=== PATIENT | female | born 1990 | race African-American/Black ===

== ENCOUNTER → 2016-05-19 | Outpatient (CLI) | payer BC, OTHER ==
--- NOTE | 2016-05-19 16:33 | US ---
EXAMINATION TYPE: US OB anatomy transabd DATE OF EXAM: 05/19/2016 4:05 PM COMPARISON: NONE HISTORY: LGA, anatomy scan, pt has no complaints at this time TECHNIQUE: Transabdominal (TA) EXAM MEASUREMENTS: GESTATIONAL AGE / DATING Physician Established: (20 weeks/ 6 days) EDC: 09/30/2016 Dates by LMP: Unknown Dates by First Scan: No prior Dates by Current Scan: (21 weeks/ 3 days) EDC: 09/26/2016 SURVEY IUP: Single PLACENTA: Anterior PREVIA: No previa NIMISHA: 12.4 cm Normal CERVICAL LENGTH (transabdominal: norm > 3.0cm): 3.8 cm BIOMETRY PRESENTATION: Vertex BPD: 5.3 cm 22 weeks / 0 days HC: 19.4 cm 21 weeks / 5 days AC: 15.8 cm 20 weeks / 6 days FL: 3.6 cm 21 weeks / 2 days ESTIMATED WEIGHT IN GRAMS: 404 grams ESTIMATED WEIGHT IN LBS/OZS: 0 lbs. 14 oz. WEIGHT PERCENTAGE BASED ON ESTABLISHED DATE: 62.5 % HC/AC: 1.23 Normal FL/AC: 23 Normal HEART RATE: 151 bpm RHYTHM: Normal ANATOMY SEEN (within normal limits): * Lateral Vent (< 1 cm)= 0.7 cm * Cisterna Magna (< 1.1 cm)= 0.3 cm * Nuchal Fold (< 0.6 cm)= 0.3 cm * Cerebellum (varies with age)= 2.2 cm Choroid Plexus (bilateral) Midline Falx Cavus Septi Pellucidi Four Chamber Heart Outflow tracts: LVOT/RVOT Stomach Situs Nose / Lips Diaphragm Kidneys (bilateral) Bladder Cord Insert Three Vessel Cord Longitudinal Spine Transverse Spine Arms (bilateral) Legs (bilateral) IMPRESSION: Single, viable IUP/ No abnormality seen at this time/ Growth parameters wnl
== END | disposition home or self-care (01) ==
LOC: RADUSWWP 15:39
PROVIDERS: ATTEND Obstetrics & Gynecology
DX: O36.62X0 Maternal care for excessive fetal growth, second trimester, not applicable or unspecified (principal); Z3A.21 21 weeks gestation of pregnancy
CPT/HCPCS: 76811

== ENCOUNTER 2016-07-26 14:59 | Observation (INO) | payer BC, OTHER ==
[2016-07-26 15:56] VITALS: BP 120/70; PULSE 90; RESP 16; TEMP 96.1
[2016-07-26] MEDS ORDERED: BETAMET ACET-BETAMETH SOD PHOS 6 MG/ML VIAL IM SCH (16:00)
[2016-07-26 17:37] LABS: Amorphous Sediment,Urine Rare /hpf; Appearance,Urine Turbid (Clear); Bacteria,Urine Many /hpf; Bilirubin,Urine Negative (Negative); Glucose,Urine (UA) Negative (Negative); Ketones,Urine Negative (Negative); Leukocyte Esterase,Urine Small (Negative); Mucus,Urine Rare /hpf; Nitrite,Urine Negative (Negative); Particle Count 21125; Protein,Urine Trace (Negative); Squamous Epithelial Cell,Urine 1 /hpf (0-4); UA Billing (MACRO vs. MICRO) MICRO; Urobilinogen,Urine <2.0 mg/dL (<2.0)
[2016-07-26] MEDS ORDERED: LACTATED RINGERS 1,000 ML IV SCH ×2 (17:45→18:30)
[2016-07-26] MEDS ORDERED: LACTATED RINGERS 1,000 ML IV ONE (17:45)
[2016-07-26] MEDS ORDERED: CALCIUM GLUCONATE 100 MG/ML 10 ML VIAL IV ONE (18:28)
[2016-07-26] MEDS ORDERED: MAGNESIUM SULFATE-WATER PMX 4 GM in WATER FOR INJECTION 50 50ML.BAG IVPB ONE (18:28)
[2016-07-26] MEDS ORDERED: MAGNESIUM SULFATE-WATER PMX 20 GM in WATER FOR INJECTION 1 500ML.BAG IV SCH (18:30)
[2016-07-26 19:47] VITALS: BMI 27.4
--- NOTE | 2016-07-26 21:15 | P.HPOB ---
History of Present Illness H&P Date: 07/26/16 Chief Complaint: pre term labor Patient is a 25-year-old at 30 weeks 2 days' gestation who ryes complaining of contractions. She ryes to the hospital approximately 3 clock's hand was present to monitor and was noted to have some irregular contractions at that time. There was a mistake in [place] her dates out and therefore nurse checked her without doing a fibronectin. However she was noted to be dilated to 2 cm 50% effaced and -3 station. Over the next hour she made no cervical change and was reexamined. However she began having stronger and more regular contractions during that time. She reports the contractions had actually begun about 3 days ago but now today. Gotten much stronger and much more regular. At approximately 6:00 I did check her myself and she was dilated to 3-3/2 and 70% effaced which is a significant change from previous exams. She had Mark received a dose of steroids as a precaution due to her early dilation. However this time she was provided with a 4 g bolus of magnesium. Sulfate and tension to start a continuous to gram per hour regimen and see if we could quite contractions. Potential transfer due to extreme prematurity. This was all discussed with the patient in detail and all questions were answered for her. She does have a history of delivery last at 36 and 6. She relates that at that time she had been dilated to 5 cm for a number of weeks and had actually been dilated again earlier maybe 31 at 32 weeks. However during the [facility] did deliver babies down at 32 weeks since that change has occurred and she is now significantly under a 35 week gestational goal the goal for her will be to try and transfer her to [place] [id number] she is stable for continued monitoring and toco lysis. Physical exam vital signs are stable and she is afebrile. Heart regular, lungs clear, extremities without pain. heart tones are in the 130s to 140s and reactive. Past medical history otherwise unremarkable Past surgical history.removal of bilateral chest cyst ALLERGIES to Benadryl and Zoloft (Zoloft causes of serotonin syndrome) Family history is significant for hypertension and diabetes. Pertinent labs do include B+ blood type Rh and beta was negative. Rubella is immune. Hepatitis B surface antigen and RPR were both negative. Assessment labor Plan toco lysis with goal to transfer to [facility] once stable Past Medical History Past Medical History: No Reported History Additional Past Medical History / Comment(s): Obstetric history: First was a vaginal delivery in 2007. This is her second and she has had care with me since 7 weeks. B+, abs neg, Rub Imm, RPR Nr, Hep B neg, HIV NR. GBS neg. She is gestational diabetic and on insulin. NSTs have been reactive. History of Any Multi-Drug Resistant Organisms: None Reported Additional Past Surgical History / Comment(s): excisional mass of chest Past Anesthesia/Blood Transfusion Reactions: No Reported Reaction Past Psychological History: Anxiety Smoking Status: Never smoker Past Alcohol Use History: Occasional Past Drug Use History: None Reported - Past Family History Father Family Medical History: No Reported History Medications and Allergies Home Medications Medication Instructions Recorded Confirmed Type Tru-Qxvy-Grhhb Acid 1 each PO DAILY 04/27/14 02/05/16 History [-U Capsule] Allergies Allergy/AdvReac Type Severity Reaction Status Date / Time sertraline HCl [From Zoloft] Allergy Severe Swelling Verified 07/26/16 15:19 diphenhydramine HCl Allergy Anaphylaxis Verified 07/26/16 15:19 [From Benadryl] Exam Osteopathic Statement: *. No significant issues noted on an osteopathic structural exam other than those noted in the History and Physical/Consult. - Vital Signs Vital signs: Vital Signs Temp Pulse Resp BP 07/26/16 15:34 96.1 F L 90 16 120/70 Intake and Output 07/26/16 07/26/16 07/26/16 06:59 14:59 22:59 Intake Total 920 Output Total 800 Balance 120 Intake: IV 900 Magnesium Sulfate-Water 900 Pmx 4 gm In Water For Injection 50 50ml.bag @ 150 mls/hr IVPB ONCE ONE Rx#:[id number] Intake, IV Titration 20 Amount Magnesium Sulfate-Water 20 Pmx 20 gm In Water For Injection 1 500ml.bag @ 2 GM/HR 50 mls/hr IV .Q10H [facility] Rx#:[id number] Output: Urine 800 Other: # Voids 1 Weight 70.307 kg Patient Weight 07/27/16 06:59 Weight 70.307 kg Results Abnormal Lab Results - Last 24 Hours (Table) 07/26/16 Range/Units 17:04 Urine Appearance Turbid H (Clear) Urine Protein Trace H (Negative) Ur Leukocyte Esterase Small H (Negative) Amorphous Sediment Rare H (None) /hpf Urine Bacteria Many H (None) /hpf Urine Mucus Rare H (None) /hpf
--- NOTE | 2016-07-26 21:41 | P.DS ---
Providers Date of admission: 07/26/16 18:36 Expected date of discharge: 07/26/16 Attending physician: Stefan Gallo Primary care physician: Stated None Hospital Course: Patient be transferred to [facility] under the care of Dr. Jose Franco and staff. Risks and benefits were discussed with patient in detail and all questions were answered for her prior to the discharge. At this time contractions are sporadic and she is not feeling much in the way of contractions at all she is significant more comfortable and this may be our best opportunity to try and get a transfer and. 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 Patient Condition at Discharge: Stable Plan - Discharge Summary Discharge Medication List Qhz-Fbju-Xglhz Acid [-U Capsule] 1 each PO DAILY 04/27/14 [ History]
== END 2016-07-26 22:42 | disposition short-term general hospital, planned readmission (82) ==
LOC: FBPOP 14:59 → 4FBP 18:36
PROVIDERS: ADMIT Obstetrics & Gynecology; ATTEND Obstetrics & Gynecology
DX: O60.03 Preterm labor without delivery, third trimester (principal); Z82.49 Family history of ischemic heart disease and other diseases of the circulatory system; Z86.32 Personal history of gestational diabetes; Z88.8 Allergy status to other drugs, medicaments and biological substances; O24.414 Gestational diabetes mellitus in pregnancy, insulin controlled; Z3A.30 30 weeks gestation of pregnancy
CPT/HCPCS: 59025; 99215; 96361; 96365; 96372; 84112; 81001; G0378; J0702; J3475 ×2

== ENCOUNTER → 2016-08-10 | Outpatient (CLI) | payer BC, OTHER ==
[2016-08-10 08:35] LABS: CH 30.9; CHCM 32.6; HCT 33.5 % (34.0-46.0); HDW 3.51; Hypochromasia Slight; MCH 31.4 pg (25.0-35.0); MCV 95.2 fL (80.0-100.0); Mean Platelet Volume 7.4; Poikilocytosis Slight; RBC 3.52 m/uL (3.80-5.40); WBC 4.1 k/uL (3.8-10.6)
[2016-08-11 09:17] LABS: HCG,Quantitative Serum 7029.1 mIU/mL
== END ==
LOC: LABWHC1 07:15
PROVIDERS: ATTEND Obstetrics & Gynecology
DX: Z34.92 Encounter for supervision of normal pregnancy, unspecified, second trimester (principal); Z3A.00 Weeks of gestation of pregnancy not specified
CPT/HCPCS: 36415; 82950; 84702; 85027

== ENCOUNTER → 2016-09-01 | Outpatient (CLI) | payer BC, OTHER ==
--- NOTE | 2016-09-01 10:26 | US ---
EXAMINATION TYPE: US OB anatomy transabd DATE OF EXAM: 09/01/2016 9:42 AM COMPARISON: HISTORY: O36.63X0 LARGE FOR DATES Anatomy per order TECHNIQUE: Transabdominal (TA) EXAM MEASUREMENTS: GESTATIONAL AGE / DATING Physician Established: (36 weeks/4 days) EDC: 09/25/2016 Dates by Current Scan for: (36 weeks/3 days) EDC: 09/26/2016 SURVEY IUP: Single PLACENTA: Anterior PREVIA: No previa NIMISHA: 14.0 cm Normal CERVICAL LENGTH (transabdominal: norm > 3.0cm): 3.1 cm BIOMETRY PRESENTATION: Vertex BPD: 8.9 cm 36 weeks / 1 days HC: 32.2 cm 36 weeks / 3 days AC: 32.4 cm 36 weeks / 3 days FL: 7.1 cm 36 weeks / 3 days ESTIMATED WEIGHT IN GRAMS: 2903 grams ESTIMATED WEIGHT IN LBS/OZS: 6 lbs. 6 oz. WEIGHT PERCENTAGE BASED ON ESTABLISHED DATE: 46 % HC/AC: 1.0 Normal FL/AC: 22% Normal HEART RATE: 143 bpm RHYTHM: Normal ANATOMY SEEN (within normal limits): * Lateral Vent (< 1 cm) cm Choroid Plexus (bilateral) Midline Falx Cavus Septi Pellucidi Four Chamber Heart Stomach Situs Nose / Lips Diaphragm Kidneys (bilateral) Bladder Three Vessel Cord ANATOMY SEEN (does not appear within normal limits): ANATOMY NOT SEEN: Not seen due to late gestational age and position * Cisterna Magna (< 1.1 cm) cm * Nuchal Fold (< 0.6 cm) cm * Cerebellum (varies with age) cm Outflow tracts: LVOT/RVOT Cord Insert Longitudinal Spine Transverse Spine Arms (bilateral) Legs (bilateral) IMPRESSION: Live IUP measuring 36 weeks 3 days
== END | disposition home or self-care (01) ==
LOC: RADUSWWP 09:04
PROVIDERS: ATTEND Obstetrics & Gynecology
DX: O36.63X0 Maternal care for excessive fetal growth, third trimester, not applicable or unspecified (principal); Z3A.36 36 weeks gestation of pregnancy
CPT/HCPCS: 76811

== ENCOUNTER 2016-09-02 14:31 | Outpatient (CLI) | payer BC, OTHER ==
[2016-09-02 15:04] VITALS: BP 114/69; PULSE 93; RESP 20; TEMP 96.3
--- NOTE | 2016-09-03 02:38 | P.MSEPDOC ---
Presenting Problems - Arrival Data Date of Arrival on Unit: 09/02/16 Time of Arrival on Unit: 14:31 Mode of Transport: Ambulatory - Complaint OB-Reason for Admission/Chief Complaint: Possible Onset of Labor Medical History - Information : 3 Para: 2 Term: 2 : 0 Abortions: Spontaneous or Elective: 0 Number of Living Children: 2 - Gestational Age Expected Date of Delivery: 09/25/16 Gestational Age by DONNIE (wks/days): 36 Weeks and 6 Days - History Complications: Prior Review of Systems - Review of Systems Constitutional: No problems Breast: No problems ENT: No problems Cardiovascular: No problems Respiratory: No problems Gastrointestinal: No problems Genitourinary: No problems Musculoskeletal: No problems Neurological: No problems Skin: No problems Comment: cust removed from both breast at age 12 Vital Signs - Temperature Temperature: 96.3 F Temperature Source: Skin - Pulse Brachial Pulse Rate: 93 Pulse Assessment Method: Automatic Cuff - Respirations Respiratory Rate: 20 Oxygen Delivery Method: Room Air O2 Sat by Pulse Oximetry: 97 - Blood Pressure Right Arm Blood Pressure: 114/69 Blood Pressure Mean: 84 Blood Pressure Source: Automatic Cuff Medical Screen Scoring (Pre) - Cervical Exam Dilation: 1-3 cm = 1 Effacement: More than 50% = 2 Membranes: Intact - Uterine Contractions Frequency: > 5 minutes apart = 1, > or = 36 weeks =2 Duration: > 40 seconds = 2 Intensity: N/A - Maternal Vital Signs Maternal Temperature: N/A Maternal Blood Pressure: N/A Signs of Preeclampsia: N/A Maternal Respirations: N/A - Maternal Trauma Maternal Trauma: N/A - Assessment Baseline FHR: 136 Heart Rate - NICHD Category: Category I (Normal) = 0 NST: Reactive - Total Score Total Score (Pre): 8 - Level of Risk Level of Risk: Medium (6-9) Physician Notification (Pre) - Physician Notified Physician Notified Date: 09/02/16 Physician Notified Time: 15:20 Physician/Practitioner Notifed:: dr mathis Spoke With: dr ferris Medical Screen Scoring (Post) - Cervical Exam Dilation: 1-3 cm = 1 Effacement: More than 50% = 2 Membranes: Intact - Uterine Contractions Frequency: > 5 minutes apart = 1 Duration: > 40 seconds = 2 Intensity: N/A - Maternal Vital Signs Maternal Temperature: N/A Maternal Blood Pressure: N/A Signs of Preeclampsia: N/A Maternal Respirations: N/A - Maternal Trauma Maternal Trauma: N/A - Assessment Heart Rate - NICHD Category: Category I (Normal) = 0 NST: Reactive - Total Score Total Score (Post): 6 - Post Treatment Level of Risk Post Treatment Level of Risk: Medium (6-9) Physician Notification (Post) - Physician Notified Physician Notified Date: 09/02/16 Physician Notified Time: 16:40 Physician/Practitioner Notified:: dr ferris Spoke With: dr ferris Disposition - Disposition OB Disposition: Triage, Discharge to home, Written follow up instructions reviewed Discharge Date: 09/02/16 Discharge Time: 17:05 I agree with the RN Medical Screening Exam: Yes Risk & Benefit of care provided described in d/c instruction: Yes Diagnosis: PRIMARY INADEQUATE CONTRACTIONS
== END 2016-09-02 17:05 | disposition home or self-care (01) ==
LOC: FBPOP 14:31
PROVIDERS: ATTEND Obstetrics & Gynecology
DX: O62.0 Primary inadequate contractions (principal); Z3A.36 36 weeks gestation of pregnancy
CPT/HCPCS: 59025; 99213

== ENCOUNTER 2016-09-11 19:14 | Inpatient (IN) | payer BC, OTHER ==
[2016-09-11] MEDS ORDERED: TERBUTALINE 1 MG/ML VIAL SQ PRN (19:48)
[2016-09-11] MEDS ORDERED: OXYTOCIN 10 UNIT/ML 1 ML VIAL IM PRN (19:48)
[2016-09-11] MEDS ORDERED: LIDOCAINE 1% (PF) 10 MG/ML (30 ML SDV) SQ PRN (19:48)
[2016-09-11] MEDS ORDERED: METHYLERGONOVINE 0.2 MG/ML 1 ML AMP IM PRN (19:48)
[2016-09-11] MEDS ORDERED: CARBOPROST TROMETHAMINE 250 MCG/ML 1 ML AMP IM PRN (19:48)
[2016-09-11] MEDS ORDERED: OXYTOCIN 20 UNITS/1000 ML NS 1,000 ML IV SCH (20:00)
[2016-09-11] MEDS: LACTATED RINGERS 1,000 ML IV SCH ×2 (20:05→21:24)
[2016-09-11 20:09] LABS: Basophils % (A) 0 %; CH 30.5; Eosinophils # (A) 0.1 k/uL (0-0.7); Eosinophils % (A) 1 %; HCT 31.9 % (34.0-46.0); HDW 3.59; HGB 10.3 gm/dL (11.4-16.0); Hypochromasia Slight; Luc # (Auto) 0.28; Luc % (Auto) 4; Lymphocytes # (A) 1.5 k/uL (1.0-4.8); Lymphocytes % (A) 19 %; MCH 29.9 pg (25.0-35.0); MCHC 32.2 g/dL (31.0-37.0); MCV 92.8 fL (80.0-100.0); Mean Platelet Volume 8.2; Monocytes # (A) 0.4 k/uL (0-1.0); Monocytes % (A) 5 %; Neutrophils # (A) 5.7 k/uL (1.3-7.7); Neutrophils % (A) 71 %; Poikilocytosis Slight; RBC 3.44 m/uL (3.80-5.40); RDW 14.4 % (11.5-15.5)
[2016-09-11] MEDS ORDERED: fentaNYL (PF) 50 MCG/ML 5 ML AMP ONE (20:30)
[2016-09-11] MEDS ORDERED: SODIUM CHLORIDE 0.9% 100 ML BAG ONE (20:30)
[2016-09-11] MEDS ORDERED: BUPIVACAINE (PF) 0.25% 30 ML VIAL ONE (20:30)
[2016-09-11] MEDS ORDERED: ACETAMINOPHEN TAB 325 MG TAB PO PRN (23:50)
[2016-09-11] MEDS ORDERED: diphenhydrAMINE 50 MG CAP PO PRN (23:50)
[2016-09-11] MEDS ORDERED: diphenhydrAMINE 50 MG/ML 1 ML VIAL IVP PRN ×2 (23:50)
[2016-09-11] MEDS ORDERED: WITCH HAZEL 1 EACH MED..PAD TOPICAL PRN (23:50)
[2016-09-11] MEDS ORDERED: LANOLIN CREAM 5 GM TUBE TOPICAL PRN (23:50)
[2016-09-11] MEDS ORDERED: BENZOCAINE/MENTHOL SPRAY 1 GM/SPRAY AEROSOL TOPICAL PRN (23:50)
[2016-09-11] MEDS ORDERED: HYDROCORTISONE 2.5% RECTAL CREAM 30 GM TUBE RECTAL PRN (23:50)
[2016-09-11] MEDS ORDERED: ZOLPIDEM 5 MG TAB PO PRN (23:50)
[2016-09-11] MEDS ORDERED: diphenhydrAMINE 25 MG CAP PO PRN (23:50)
[2016-09-11] MEDS ORDERED: SIMETHICONE 80 MG CHEWABLE PO PRN (23:50)
--- NOTE | 2016-09-11 23:53 | P.HPOB ---
History of Present Illness H&P Date: 09/11/16 Chief Complaint: Intrauterine at term: Active labor Patient is a 25 year old at 38 weeks gestation arise in active labor dilated to 5 cm making cervical change. Her Precis course has been, K by a labor episode 32 weeks where she was transferred to high risk. She did return and has done relatively well and has had no other significant issues since that time. She thought she might broke her water tonight however an Essure was negative artificial rupture membranes was performed and clear fluid is noted. Pertinent labs did include B+ blood type Rh was negative, rubella immune, hepatitis B surface antigen and RPR were both negative. On physical exam vital signs are stable and afebrile. Heart regular, lungs clear, extremities without pain. Abdomen is soft gravid uterus is noted. heart tones are 130s to 150s have been reactive. She is josie every 2-3 minutes. Assessment intrauterine at term. Plan expect spontaneous vaginal delivery. She plans to utilize epidural for analgesia Past Medical History Past Medical History: No Reported History Additional Past Medical History / Comment(s): Obstetric history: First was a vaginal delivery in 2007. This is her second and she has had care with nm since 7 weeks. B+, abs neg, Rub Imm, RPR Nr, Hep B neg, HIV NR. GBS neg. She is gestational diabetic and on insulin. NSTs have been reactive. History of Any Multi-Drug Resistant Organisms: None Reported Additional Past Surgical History / Comment(s): excisional mass of chest at age 11 Past Anesthesia/Blood Transfusion Reactions: No Reported Reaction Past Psychological History: Anxiety Additional Psychological History / Comment(s): not medicated Smoking Status: Never smoker Past Alcohol Use History: Occasional Past Drug Use History: None Reported - Past Family History Father Family Medical History: No Reported History Medications and Allergies Home Medications Medication Instructions Recorded Confirmed Type Hix-Zucb-Zxmid Acid 1 each PO DAILY 04/27/14 09/11/16 History [-U Capsule] Allergies Allergy/AdvReac Type Severity Reaction Status Date / Time sertraline HCl [From Zoloft] Allergy Severe Swelling Verified 09/02/16 14:54 diphenhydramine HCl Allergy Anaphylaxis Verified 09/02/16 14:54 [From Benadryl] Exam Osteopathic Statement: *. No significant issues noted on an osteopathic structural exam other than those noted in the History and Physical/Consult. - Vital Signs Vital signs: Vital Signs Temp Pulse Resp BP 09/11/16 19:47 96.2 F L 87 16 116/69 Intake and Output 09/11/16 09/11/16 09/12/16 14:59 22:59 06:59 Other: # Voids 1 Weight 70.76 kg Patient Weight 09/12/16 06:59 Weight 70.76 kg Results Result Diagrams: 09/11/16 20:00 Abnormal Lab Results - Last 24 Hours (Table) 09/11/16 Range/Units 20:00 RBC 3.44 L (3.80-5.40) m/uL Hgb 10.3 L (11.4-16.0) gm/dL Hct 31.9 L (34.0-46.0) %
--- NOTE | 2016-09-11 23:54 | P.PROBDLV ---
Vaginal Delivery Note - . Vaginal Delivery Note: Patient progressed complete and pushed with spontaneous vaginal delivery of a viable female over an intact perineum. Falling deliver the head anterior posterior shoulders were easily delivered with gentle downward upper traction followed by the remainder the baby. Baby was delivered from straight OA position. Once baby was fully delivered mouth nares were bulb suctioned and baby was placed on mother's abdomen where the umbilical cord was clamped pulsating 30 seconds prior to clamping and cutting. Once this was accomplished nursery personnel was present to assume care. Placenta was then delivered intact Pitocin was added to the IV. scores were 8 and 9 at one and 5 minutes and the weight was 6 lbs. 12 oz. Both mother and baby currently appear stable following delivery.
[2016-09-12] MEDS: Acetaminophen-Codeine 300-30mg TAB PO PRN ×5 (00:35→19:58)
[2016-09-12] MEDS: IBUPROFEN 600 MG TAB PO PRN ×4 (02:05→23:13)
[2016-09-12] MEDS: LACTATED RINGERS 1,000 ML IV SCH (05:38)
[2016-09-12 07:45] VITALS: RESP 16
--- NOTE | 2016-09-12 08:31 | P.PNOBGVD ---
Subjective - Subjective Principal diagnosis: S/P NVD PPD #1 Interval history: Pt seen and examined. c/o intense cramps about 3 times an hour. taking ibuprofen. Denies N/V, F/C, CP, SOB, calf pain. Patient reports: Reports appetite normal, Reports voiding normally, Reports pain well controlled, Reports ambulating normally Calion: doing well Objective - Latest Vital Signs Latest vital signs: Vital Signs Temp Pulse Resp BP Pulse Ox 09/12/16 07:41 98.7 F 75 16 115/70 98 09/12/16 04:00 98.7 F 84 18 118/75 98 09/12/16 01:46 96.5 F L 77 18 128/78 09/12/16 01:16 96.1 F L 88 18 126/75 100 09/12/16 00:46 96.0 F L 68 16 115/66 09/12/16 00:31 96.0 F L 81 18 122/70 09/12/16 00:16 67 18 123/70 09/12/16 00:01 96.3 F L 68 16 117/66 97 09/11/16 23:46 96.3 F L 83 16 123/70 09/11/16 19:47 96.2 F L 87 16 116/69 Intake and Output 09/11/16 09/12/16 09/12/16 22:59 06:59 14:59 Intake Total 1300 Output Total 300 Balance 1000 Intake: Intake, IV Titration 1300 Amount Lactated Ringers 1,000 ml 1300 @ 125 mls/hr IV .Q8H [facility] Rx#:[id number] Output: Urine 300 Other: Voiding Method Toilet # Voids 1 1 1 # Bowel Movements 0 Weight 70.76 kg - Exam Lungs: bilateral: normal Chest: Normal S1, Normal S2 Extremities: Present: normal Abdomen: Present: normal appearance, soft Uterus: Present: normal, firm - Labs Labs: Abnormal Lab Results - Last 24 Hours (Table) 09/11/16 Range/Units 20:00 RBC 3.44 L (3.80-5.40) m/uL Hgb 10.3 L (11.4-16.0) gm/dL Hct 31.9 L (34.0-46.0) % Assessment and Plan (1) Normal vaginal delivery Narrative/Plan: 1. continue care Current Visit: Yes Status: Acute Code(s): O80 - ENCOUNTER FOR FULL-TERM UNCOMPLICATED DELIVERY SNOMED Code(s): 55343809
[2016-09-12] MEDS: SENNOSIDES-DOCUSATE SODIUM 1 EACH TAB PO SCH ×2 (19:59→20:44)
[2016-09-13] MEDS: Acetaminophen-Codeine 300-30mg TAB PO PRN (01:14)
[2016-09-13] MEDS: IBUPROFEN 600 MG TAB PO PRN (05:43)
[2016-09-13] MEDS: SENNOSIDES-DOCUSATE SODIUM 1 EACH TAB PO SCH (07:40)
[2016-09-13 08:23] VITALS: BP 99/64; PULSE 67; TEMP 98.4
--- NOTE | 2016-09-13 08:37 | P.DS ---
Providers Date of admission: 09/11/16 19:40 Expected date of discharge: 09/13/16 Attending physician: Stefan Gallo Primary care physician: Stated None - Discharge Diagnosis(es) (1) Normal vaginal delivery Current Visit: Yes Status: Acute Hospital Course: Patient presented in active labor. She underwent a normal vaginal delivery. Her course. With a little bit of back pain from where the epidural was placed but that is improving as time goes on. She is taking Motrin for pain control. Denies nausea, vomiting, chest pain, shortness of breath or calf pain. Her lochia is decreasing. She is voiding and ambulating without difficulty. She'll be discharged home day #2 in stable condition to follow-up with me in 6 weeks. Plan - Discharge Summary New Discharge Prescriptions: Ibuprofen [Motrin] 600 mg PO Q6HR PRN #30 tab PRN Reason: Mild Pain Or Fever >= 100.5 Discharge Medication List Vzm-Izit-Pfkno Acid [-U Capsule] 1 tab PO DAILY 04/27/14 [ History] Ibuprofen [Motrin] 600 mg PO Q6HR PRN #30 tab 09/13/16 [Rx] Follow up Appointment(s)/Referral(s): Rae Collins DO [Doctor of Osteopathic Medicine] - 6 Weeks Discharge Disposition: HOME SELF-CARE
== END 2016-09-13 15:25 | disposition home or self-care (01) | DRG 775 ==
LOC: FBPOP 19:14 → 4FBP 19:40
PROVIDERS: ADMIT Obstetrics & Gynecology; ATTEND Obstetrics & Gynecology
PROC: 10E0XZZ Delivery of Products of Conception, External Approach (ICD-10-PCS; principal; 2016-09-11)
PROC: 00HU33Z Insertion of Infusion Device into Spinal Canal, Percutaneous Approach (ICD-10-PCS; 2016-09-11)
PROC: 3E0R3CZ (ICD-10-PCS; 2016-09-11)
DX: O24.424 Gestational diabetes mellitus in childbirth, insulin controlled (principal); O99.344 Other mental disorders complicating childbirth; F41.9 Anxiety disorder, unspecified; Z37.0 Single live birth; Z3A.38 38 weeks gestation of pregnancy; Z79.4 Long term (current) use of insulin
CPT/HCPCS: 59025; 84112; 85025; 88307; 99213

== ENCOUNTER → 2016-11-07 | Outpatient (CLI) | payer BC, OTHER ==
[2016-11-07 16:21] LABS: Basophils % (A) 0 %; CH 29.8; CHCM 33.8; Eosinophils % (A) 1 %; HCT 34.5 % (34.0-46.0); HDW 3.03; HGB 12.1 gm/dL (11.4-16.0); Luc # (Auto) 0.13; Luc % (Auto) 3; Lymphocytes # (A) 1.7 k/uL (1.0-4.8); Lymphocytes % (A) 45 %; MCHC 35.2 g/dL (31.0-37.0); MCV 88.1 fL (80.0-100.0); Mean Platelet Volume 7.1; Monocytes # (A) 0.2 k/uL (0-1.0); Monocytes % (A) 6 %; Neutrophils # (A) 1.7 k/uL (1.3-7.7); Neutrophils % (A) 44 %; RBC 3.91 m/uL (3.80-5.40); RDW 14.5 % (11.5-15.5); WBC 3.8 k/uL (3.8-10.6); WBC (Perox) 3.97
== END | disposition home or self-care (01) ==
LOC: LABPAT 15:39
PROVIDERS: ATTEND Obstetrics & Gynecology
DX: Z01.812 Encounter for preprocedural laboratory examination (principal)
CPT/HCPCS: 85025

== ENCOUNTER 2016-11-15 06:15 | Day surgery (SDC) | payer BC, OTHER ==
[2016-11-14 11:05] VITALS: BMI 23.7
--- NOTE | 2016-11-14 16:38 | P.HPOB ---
History of Present Illness H&P Date: 11/14/16 Chief Complaint: Family Planning 25 year old presents for laparoscopic tubal ligation. Review of Systems All systems: negative Constitutional: Denies chills, Denies fever Eyes: denies blurred vision, denies pain Ears, nose, mouth and throat: Denies headache, Denies sore throat Cardiovascular: Denies chest pain, Denies shortness of breath Respiratory: Denies cough Gastrointestinal: Denies abdominal pain, Denies diarrhea, Denies nausea, Denies vomiting Genitourinary: Denies dysuria, Denies hematuria Musculoskeletal: Denies myalgias Integumentary: Denies pruritus, Denies rash Neurological: Denies numbness, Denies weakness Psychiatric: Denies anxiety, Denies depression Endocrine: Denies fatigue, Denies weight change Past Medical History Past Medical History: No Reported History History of Any Multi-Drug Resistant Organisms: None Reported Additional Past Surgical History / Comment(s): excisional mass of chest at age 11 Past Anesthesia/Blood Transfusion Reactions: No Reported Reaction Past Psychological History: No Psychological Hx Reported Smoking Status: Never smoker Past Alcohol Use History: None Reported Past Drug Use History: None Reported - Past Family History Father Family Medical History: No Reported History Medications and Allergies Home Medications Medication Instructions Recorded Confirmed Type No Known Home Medications [No 11/14/16 11/14/16 History Known Home Medications] Allergies Allergy/AdvReac Type Severity Reaction Status Date / Time sertraline HCl [From Zoloft] Allergy Severe Swelling Verified 11/14/16 10:56 diphenhydramine HCl Allergy Anaphylaxis Verified 11/14/16 10:56 [From Benadryl] Exam Osteopathic Statement: *. No significant issues noted on an osteopathic structural exam other than those noted in the History and Physical/Consult. - Vital Signs Vital signs: Intake and Output 11/14/16 11/14/16 11/14/16 06:59 14:59 22:59 Other: Weight 61.689 kg Patient Weight 11/15/16 06:59 Weight 61.689 kg Heart: RRR Lungs: CTAB Abdomen: soft, nontender Extremeties: neg kaitlynn's Assessment and Plan (1) Family planning Status: Acute Plan: 1. laparoscopic tubal ligation
[~2016-11-15 06:15] MED LIST: DEXAMETHASONE SOD PHOSPHATE 10 MG/ML 1 ML VIAL IV ONE; HYDROmorphone 1 MG/ML 1 ML SYRINGE IVP PRN; MIDAZOLAM 2 MG/2 ML VIAL IV PRN; ONDANSETRON 4 MG/2 ML VIAL IVP ONE; Pre Op ABX Message 1 EACH MISC MISCELLANE ONE
[2016-11-15] MEDS: LACTATED RINGERS 1,000 ML IV SCH ×2 (06:41→07:24)
[2016-11-15] MEDS ORDERED: LIDOCAINE 1% 20 ML VIAL (10MG/ML) FOR IV START INTRADERMA ONE (06:42)
[2016-11-15] MEDS ORDERED: NEOSTIGMINE 1 MG/ML 10 ML VIAL ONE (07:25)
[2016-11-15] MEDS ORDERED: MIDAZOLAM 2 MG/2 ML VIAL ONE (07:25)
[2016-11-15] MEDS ORDERED: ROCURONIUM BROMIDE 10 MG/ML 10 ML VIAL IV ONE (07:25)
[2016-11-15] MEDS ORDERED: PROPOFOL 10 MG/ML 20 ML VIAL IV ONE (07:25)
[2016-11-15] MEDS ORDERED: KETOROLAC 30 MG/ML 1 ML VIAL ONE (07:25)
[2016-11-15] MEDS ORDERED: LIDOCAINE 1% INJ 10MG/ML (20 ML MDV) ONE (07:25)
[2016-11-15] MEDS ORDERED: SUCCINYLCHOLINE CHLORIDE 100 MG/5 ML SYR IV ONE (07:25)
[2016-11-15] MEDS ORDERED: GLYCOPYRROLATE 0.2 MG/ML 2 ML VIAL ONE (07:25)
[2016-11-15] MEDS ORDERED: fentaNYL (PF) 50 MCG/ML 2 ML AMP ONE (07:25)
[2016-11-15] MEDS ORDERED: BUPIVACAINE (PF) 0.25% 30 ML VIAL SQ ONE ×2 (07:58)
--- NOTE | 2016-11-15 08:10 | P.OP ---
Date of Procedure: 11/15/16 Preoperative Diagnosis: 1. Family Planning Postoperative Diagnosis: 1. FAmily Planning Procedure(s) Performed: Laparoscopic tubal ligation Implants: Anesthesia: JOSEA Surgeon: Rae Collins Estimated Blood Loss (ml): 3 IV fluids (ml): 300 Urine output (ml): 20 Pathology: none sent Condition: stable Disposition: PACU Indications for Procedure: Operative Findings: Normal uterus tubes and ovaries Description of Procedure: Patient was taken to the operating room where general anesthesia was obtained without difficulty. She was prepped and draped in normal sterile fashion in the dorsal lithotomy position, legs placed in the Dmitri stirrups. Bladder drained of all urine. Mineral speculum placed in the vagina and the anterior lip the cervix was grasped with single-tooth tenaculum. The uterus is sounded to 10 cm and the kroner manipulator was placed. Attention was then turned to the abdomen and gloves were changed. A 10 mm infraumbilical incision was made the scalpel and 10 mm optical trocar was placed under direct visualization. A 5 mm suprapubic Incision was made and a 5 mm optical trocar was placed under direct visualization. Survey of the pelvis revealed normal uterus tubes and ovaries. The left fallopian tube was grasped with a Kleppinger and fulgurated 2 -3 cm on this side in the ampullar portion. The right fallopian tube was grasped with a Kleppinger and fulgurated 2-3 cm in the ampullar portion. All instruments were then removed from the abdomen and vagina. The 10 mm infraumbilical incision was closed with 0 Vicryl and the fascial layer and then 4-0 Vicryl in a subcuticular fashion. The 5 mm incision was closed with 4-0 Vicryl in a subcuticular fashion. Patient tolerated procedure well, sponge and instrument counts correct 2 and she was taken to recovery room in stable condition.
[2016-11-15 08:24] VITALS: RESP 16; TEMP 97
[2016-11-15 09:48] VITALS: PULSE 57
[2016-11-15 10:11] VITALS: BP 116/54
== END 2016-11-15 11:00 | disposition home or self-care (01) ==
LOC: OR 06:15
PROVIDERS: ATTEND Obstetrics & Gynecology
DX: Z30.2 Encounter for sterilization (principal); Z88.8 Allergy status to other drugs, medicaments and biological substances
CPT/HCPCS: 58670; 81025; J2250; J1100; J2710; J2405; J2001; J3010; J1885; J0330; J2704

== ENCOUNTER → 2017-03-28 | Outpatient (CLI) | payer BC, OTHER ==
[2017-03-28 10:11] LABS: Basophils % (A) 0 %; CH 30.9; CHCM 32.4; Eosinophils % (A) 1 %; HCT 38.2 % (34.0-46.0); HDW 2.73; HGB 12.2 gm/dL (11.4-16.0); Luc # (Auto) 0.11; Luc % (Auto) 2; Lymphocytes # (A) 1.5 k/uL (1.0-4.8); Lymphocytes % (A) 24 %; MCH 30.6 pg (25.0-35.0); MCHC 31.9 g/dL (31.0-37.0); MCV 95.9 fL (80.0-100.0); Mean Platelet Volume 7.9; Monocytes # (A) 0.3 k/uL (0-1.0); Monocytes % (A) 5 %; Neutrophils # (A) 4.2 k/uL (1.3-7.7); Neutrophils % (A) 68 %; RBC 3.98 m/uL (3.80-5.40); RDW 13.2 % (11.5-15.5); WBC 6.2 k/uL (3.8-10.6); WBC (Perox) 6.55
[2017-03-28 10:24] LABS: ALT 22 U/L (9-52); AST 18 U/L (14-36); Alkaline Phosphatase 48 U/L (38-126); Anion Gap 9 mmol/L; Blood Urea Nitrogen 9 mg/dL (7-17); Calcium 9.1 mg/dL (8.4-10.2); Carbon Dioxide 26 mmol/L (22-30); Chloride 105 mmol/L (98-107); Cholesterol 175 mg/dL (<200); Glucose 93 mg/dL (74-99); HDL Cholesterol 63 mg/dL (40-60); Non-African American GFR(MDRD) >60 (>60 ml/min/1.73 sqM); Potassium 4.1 mmol/L (3.5-5.1); Sodium 140 mmol/L (137-145); Total Bilirubin 0.4 mg/dL (0.2-1.3); Total Protein 7.3 g/dL (6.3-8.2)
== END | disposition home or self-care (01) ==
LOC: LABWHC1 08:40
PROVIDERS: ATTEND Family Medicine
DX: Z00.00 Encounter for general adult medical examination without abnormal findings (principal)
CPT/HCPCS: 36415; 80053; 80061; 82306; 85025

== ENCOUNTER → 2017-06-12 | Outpatient (CLI) | payer BC, OTHER | END | disposition home or self-care (01) | LOC: LABWHC1 07:03 | PROVIDERS: ATTEND Family Medicine | DX: E55.9 Vitamin D deficiency, unspecified (principal) | CPT/HCPCS: 36415; 82306 ==

== ENCOUNTER → 2017-08-18 | Outpatient (CLI) | payer BC, OTHER ==
--- NOTE | 2017-08-18 08:16 | US ---
EXAMINATION TYPE: US abdomen complete DATE OF EXAM: 08/18/2017 COMPARISON: NONE CLINICAL HISTORY: R10.11 Right upper quad pain since tubal ligation via laparoscopy October 2016,loss of appetite EXAM MEASUREMENTS: Liver Length: 14.8 cm Gallbladder Wall: 0.1 cm CBD: 0.3 cm Spleen: 8.4 cm Right Kidney: 11.1 x 6.1 x 4.6 cm Left Kidney: 11.5 x 4.8 x 4.6 cm Pancreas: wnl Liver: wnl Gallbladder: wnl Evidence for sonographic Rodriguez's sign: tender here CBD: wnl Spleen: splenic granulomas throughout organ Right Kidney: No hydronephrosis or masses seen Left Kidney: No hydronephrosis or masses seen Upper IVC: wnl Abd Aorta: wnl IMPRESSION: No suspicious finding is seen to account for patient's symptoms.
== END ==
LOC: RADUSWWP 06:57
PROVIDERS: ATTEND Family Medicine
DX: R10.11 Right upper quadrant pain (principal)
CPT/HCPCS: 76700

== ENCOUNTER → 2021-01-18 | Outpatient (CLI) | payer BC, OTHER | END | disposition home or self-care (01) | LOC: LABWHC1 13:21 | PROVIDERS: ATTEND Family Medicine | DX: Z20.822 Contact with and (suspected) exposure to COVID-19 (principal); R50.9 Fever, unspecified; R52 Pain, unspecified | CPT/HCPCS: U0003; C9803; U0005 ==